=== PATIENT | female | born 1985 | race Caucasian/White ===

== ENCOUNTER → 2019-05-19 17:18 | Observation (INO) ==
--- NOTE | 2019-05-19 14:06 | OB/GYN History & Physical ---
Date of Encounter: 05/19/19 Time of Encounter: 13:30 Assessment and Plan (1) Back pain affecting Current visit: Yes Status: Acute 34yo at 29+0wksGA who presents s/p fall from chair ([id number]), no direct abdominal trauma [id number], r/o PTL - good FM - denies n/v/d, denies CTX/VB - UTD PNC with Dr. Constantino, this is an IVF - patient was kept on CEFM for 4 hours - reactive and reassuring - DC to home with precaution(S) Dispo: DC to home with precaution(S), will f/u with Dr. Constantino in office as scheduled. MD [email or web address] Qualifiers: Qualified Code(s): O99.89 - Other specified diseases and conditions complicating , childbirth and the puerperium; M54.9 - Dorsalgia, unspecified History of Present Illness Chief complaint: 34yo at 29+wks GA HPI: Ms. Leigh is a 34 year old female at 29+0wks GA who presents s/p [id number] from rolling chair at work. Pateint with UTD PNC with Dr. Constantino. IVF with hx of 1 prior SAB. Patient reports having been at work todayw hen she was leaning back on a rolling chair, and had the chair slide out from underneath her bottom. The patient "[id number]-ij-[id number]" and had no direct abdominal trauma appreciated. Good FM since this time was appreciated, no obstetrical concerns. Patient did appreciated lower back discomfort and therefore presented to the office for CEFM. Patient is aware that she will need to remain on CEFM for a full 4 hours for well being. Patient will be for DC to home should her tracing appear normal with adequate reactivity and variability. Past Med Surg Social Fam HX - Past Medical History Medical history: no medical history Psychiatric history: no psych history - Past Surgical History Surgical History: no surgical history - Social History Smoking Status: Never smoker Smokeless Tobacco Status: No Alcohol use: none Drug use: none - Family History Paternal Grandfather Living Status: Still Living Hx Family Cardiac Disorders: Yes Obstetrical History - Pregnancies : 2 Para: 0 Term: 0 : 0 Ab's: 1 Livin Exam - Neck Neck exam: full ROM, normal inspection - Lungs Respiratory exam: CTAB - Cardiovascular Cardiovascular exam: RRR - Abdomen Abdomen: Present: bowel sounds normal - Extremities Deep Tendon Reflex Grade: 2+ Normal - Anus/Rectum Anus/Rectum: Present: normal perianal skin Results All other labs normal. - VTE Reasons for not Prescribing Prophylaxis: Treatment not Indicated - Low risk for VTE
[~2019-05-19 17:18] MED LIST: Ringers Solution, Lactated 1,000 ML IVC ONE; Ringers Solution, Lactated 1,000 ML IVC SCH
== END | disposition home or self-care (01) ==
LOC: 1NENULAB
PROVIDERS: ADMIT Advanced Practice Midwife; ATTEND Advanced Practice Midwife

== ENCOUNTER → 2019-06-13 15:45 | Observation (INO) ==
[2019-06-13 10:35] LABS: Basophils # 0.1 K/mcL (0.0-0.2); Basophils % 0.4 %; Eosinophils # 0.1 K/mcL (0.0-0.6); Hematocrit 40.4 % (35.3-44.9); Immature Granulocytes % 0.6 % (0-4); Lymphocytes # 2.3 K/mcL (0.6-4.6); Lymphocytes % 16.5 %; Mean Corpuscular HGB Conc 34.7 g/dL (31.6-35.5); Mean Corpuscular Hemoglobin 31.8 pg (28.0-33.3); Mean Corpuscular Volume 91.8 fL (83.0-100.0); Mean Platelet Volume 11.7 fL (9.4-12.4); Monocytes # 0.7 K/mcL (0.0-1.3); Neutrophils # 10.8 K/mcL (1.6-8.9); Platelet Count 286 K/mcL (140-400); Red Cell Distribution Width 13.1 % (11.5-14.5); Segmented Neutrophils % 76.5 %; White Blood Count 14.1 K/mcL (4.3-11.1)
[2019-06-13 10:53] LABS: Alanine Aminotransferase 13 Units/L (7-52); Aspartate Amino Transferase 18 Units/L (13-39); BUN/Creatinine Ratio 13 (6-26); Blood Urea Nitrogen 11 mg/dL (6-20); Lactate Dehydrogenase 189 Units/L (140-271); Uric Acid 7.4 mg/dL (2.3-7.6); eGFR For African Americans > 60 (> 60); eGFR For Non-African Americans > 60 (> 60)
[2019-06-13 11:11] LABS: Creatinine,Urine 579 mg/dL
[2019-06-13 12:36] LABS: Bilirubin,Urine Negative (Negative); Blood,Urine Trace (Negative); Clarity,Urine Turbid (Clear); Color,Urine Dark Yellow (Yellow); Glucose,Urine (UA) Normal (Normal); Ketones,Urine Trace mg/dL (Negative); Leukocyte Esterase,Urine Negative (Negative); Nitrite,Urine Negative (Negative); Protein,Urine >=1000 mg/dL (Neg-Trace); Specific Gravity,Urine > 1.030 (1.010-1.025); Urobilinogen,Urine Normal (Normal)
[2019-06-13 12:43] LABS: Squamous Epithelial Cell,Urine Many per lpf (None-Few); WBC,Urine TNTC per hpf (0-3)
[2019-06-13 12:47] LABS: Bacteria,Urine Few per hpf (None-Few); Granular Casts,Urine Few per lpf (None Seen); Hyaline Casts,Urine Few per lpf (None-Few)
[2019-06-13 12:56] LABS: Creatinine,Urine 627 mg/dL
[2019-06-13 13:58] VITALS: BP 135/83
[~2019-06-13 15:45] MED LIST changes: +*HR* Labetalol 20 MG/4 ML SYRINGE IVP ONE; +Acetaminophen 325 MG TABLET PO ONE; +Betamethasone Acet/SodPhos 30 MG/5 ML VIAL IM SCH; +Calcium Gluconate 1,000 MG/10 ML VIAL ONE; +Magnesium Sulfate 20 gm/500mL 20 GM/500 ML IV.SOLN IVC SCH; +NIFEdipine 10 MG CAPSULE PO ONE; +NIFEdipine 10 MG CAPSULE PO PRN; -Ringers Solution, Lactated 1,000 ML IVC ONE; +Ringers Solution, Lactated 1,000 ML ONE
== END | disposition other institution (70) ==
LOC: 1NENULAB
PROVIDERS: ADMIT Registered Nurse; ATTEND Registered Nurse